=== PATIENT | female | born 1945 | race Caucasian/White ===

== ENCOUNTER 2022-05-14 05:46 | Inpatient (IN) | payer OTHER, MEDICAID, SELFPAY ==
[2022-05-07 11:38] VITALS: BMI 23.9
[2022-05-14] VITALS (16 sets, daily range): BP systolic 102–165; BP diastolic 45–82; PULSE 97–128; RESP 10–22; TEMP 35.8–37.3; O2SAT 92–100; BMI 23.9
--- NOTE | 2022-05-14 | DI.RAD.S_ITS ---
PROCEDURE: XR LUMBAR SPINE 2-3V INDICATIONS: L3-S1 PSF TECHNIQUE: 3 intraoperative fluoroscopic views of the lumbar spine were acquired. COMPARISON: None. FINDINGS: Intraoperative fluoroscopic images shows left transpedicular fusion at L4 through S1 levels and right transpedicular fusion at L3 through S1 levels. Intervertebral spacer placement at L4-5 and L5-S1 levels are seen. IMPRESSION: Fluoro guidance was provided intraoperatively for posterior fusion at L3 through S1 levels. Dictated by: Everette Xiong M.D. on 05/14/2022 at 14:15 Approved by: Everette Xiong M.D. on 05/14/2022 at 14:16
[2022-05-14 07:16] LABS: COVID19 -Nasal RAPID Negative (Negative)
[2022-05-14] MEDS: ACETAMINOPHEN 325 MG TABLET 650 MG PO ×2 (07:21→13:29)
[2022-05-14] MEDS: ALBUTEROL/IPRATROPIUM 3 ML AMPUL INH (07:21)
[2022-05-14] MEDS: LACTATED RINGERS 1,000 ML 42 ML IV ×2 (07:21→11:26)
--- NOTE | 2022-05-14 07:42 | PM.HP.1 ---
History of Present Illness History of Present Illness Date Patient Seen: 05/14/22 Time Patient Seen: 07:42 Date of Onset of Symptoms: 05/02/14 Chief complaint: INPT Narrative: Ms. Aden is a 77 yo F with chronic back pain and worsening leg pain and weakness over the last 5 years. She had previous lumbar surgery 30 years ago and has been having worsening pain over at least 10 years. She failed multiple conservative care and elected to proceed with surgery treatment. Patient History Medical History Anesthesia Anxiety and depression Asthma Chronic pain disorder Colon cancer Colon polyp Current every day smoker Diverticulosis Endometriosis Hx of sigmoidoscopy (04/10/21) IBS (irritable bowel syndrome) Lung cancer Migraine headache Osteoporosis Seasonal allergies Seizure disorder Vulvar cancer Surgical History H/O wrist surgery History of bronchoscopy (05/2020) History of hysterectomy History of lumbar spinal fusion History of lung surgery (06/04/20) History of removal of ovarian cyst Hx of colonoscopy (04/30/20) Hx of hemorrhoidectomy (1974) Family & Social History Social History: household members none Prior Living Arrangements Apartment/Condo Safety & Behavioral: Feels Safe in Current Yes Environment Been Physically Hurt or No Threatened By a Person Suicidal Ideation Description None Suicide Plan Description No Plan Tobacco & Substance use: Tobacco type cigarettes Smoking Status Current every day smoker alcohol intake former Substance Use Type does not use Meds Home Medications and Allergies Home Medications Medication Instructions Recorded Confirmed Type albuterol sulfate 90 mcg/actuation 2 puff inhalation Q4-6H PRN 05/07/22 05/14/22 History aerosol inhaler Shortness Of Breath aspirin 81 mg tablet,delayed 81 mg PO DAILY 05/07/22 05/14/22 History release duloxetine 30 mg capsule,delayed 30 mg PO BID 05/07/22 05/14/22 History release fluticasone 250 mcg-salmeterol 50 1 inh inhalation BEDTIME PRN 05/07/22 05/14/22 History mcg/dose blistr powdr for Shortness Of Breath inhalation hydrocodone 5 mg-acetaminophen 325 1 - 2 tab PO Q4-6H PRN Pain 05/07/22 05/14/22 History mg tablet lamotrigine 200 mg tablet 200 mg PO BID 05/07/22 05/14/22 History (Lamictal) lisinopril 2.5 mg tablet 2.5 mg PO DAILY 05/07/22 05/14/22 History montelukast 10 mg tablet 10 mg PO BEDTIME 05/07/22 05/14/22 History propranolol 40 mg tablet 40 mg PO TID 05/07/22 05/14/22 History cromolyn 4 % eye drops 2 drp ophthalmic (eye) QID 05/14/22 05/14/22 History topiramate 100 mg tablet (Topamax) 100 tab PO DAILY 05/14/22 05/14/22 History Allergies Allergy/AdvReac Type Severity Reaction Status Date / Time meperidine Allergy Severe Swelling Verified 05/14/22 07:16 at IV site erythromycin base AdvReac Severe Gastrointestinal Verified 05/14/22 07:16 Upset gabapentin AdvReac Severe Congested Verified 05/14/22 07:16 and hard to breathe, a lot of coughing NSAIDS (Non-Steroidal AdvReac Severe Muscle Pain Verified 05/14/22 07:16 Anti-Inflamma Review of Systems Review of Systems ROS: Yes All systems reviewed with the patient and are negative except as otherwise documented Exam Vital Signs (past 8 hours): - 05/14/22 07:02 Temperature 97.4 F L Pulse Rate 104 H Respiratory Rate 22 Blood Pressure 165/82 H Pulse Oximetry 100 Oxygen Delivery Method Room Air Oxygen Delivery Method Room Air Back/Spine/Pelvis Other: back incision well healed. no erythema. Neuro Other: Bilateral LE with decreased sensibility to bilateral L4, L5 dermatome, motor strength 4/5 in bilateral EHL, TA, gastroc. + straight leg raise to LLE. Objective Labs Labs: Laboratory Results - last 24 hr 05/14/22 06:48 SARS-CoV-2 (PCR) Negative Assessment & Plan Assessment & Plan narrative: Risks for surgery was discussed and informed consent was obtained. Risks for surgery include but not limited to bleeding, infection, nerve/dura/bladder/bowel/blood vessel injury, persisting pain, hardware complications, need for additional procedure, even . Patient understands and would like to proceed with surgery. I scheduled her for L3-4 HWR, L4-S1 TLIF, L3-S1 PSF with instrumentation. Time Spent With Patient Critical Care time: I spent a total of [] minutes of critical care time on this patient's care today; this time is exclusive of procedural time.
--- NOTE | 2022-05-14 07:47 | PM.OP.1 ---
Operative Date/Time/Diagnoses Date of procedure: 05/14/22 Time of procedure: 07:45 Pre-op diagnosis: 1. HIstory of L3-4 fusion with instrumentation 2. L3-4, L4-5, L5-S1 spinal stenosis with neurogenic claudication 3. Lumbar radiculopathy Post-op diagnosis: same Procedure & Clinicians Procedure: 1. L4-5, L5-S1 posterolateral and posterior interbody fusion 2. L4-5, L5-S1 interbody cage placement 3. L3-4 revision hemilaminectomy and exploration of fusion 4. L3-S1 posterior segmental instrumentation 5. L3-4 posterolateral fusion 6. [place] of bone marrow from iliac crest through separate incision 7. Utilization of microsurgical technique and operating microscope 8. Utilization of [employer] robotic navigation Same procedure as scheduled: Yes Indications: Ms. Aden is here for scheduled lumbar fusion due to progressive back pain, leg pain and weakness failing conservative care. She has difficulty performing activity of daily living due to lumbar spinal stenosis with previous fusion and hardware. After discussing risks and benefits of treatment options, patient elected to proceed with surgery. Surgeon: Ramon Yoo Inward Toll Operator: Daly Meyers Click Yes if Unassisted: No Anesthesia Type: General Operative Notes Closure Type: primary Specimen(s): none sent Prosthetic devices, grafts, tissues, transplants, or devices: Globus CREO MIS screws, Rise cages Applied: catheter Estimated Blood Loss (mL): 100 Blood products transfused: none Procedure in detail: Patient was seen in the preoperative area. Risks and benefits of the surgery was discussed with the patient. Informed consent was obtained from the patient and placed in the chart. Surgical site was marked. Patient was taken to the operative room. General anesthesia was administered. Prophylactic antibiotic was given to the patient less than 30 min before the incision was made. Patient was placed into a prone position on the Jairo table. Patient's back was then prepped and draped in the sterile fashion. Time-out was performed at this time. After patient was prepped and draped, patient's PSIS was palpated and marked bilaterally. Small 1 cm incision was made over the PSIS for placement of the reference probes. Two trocar was placed into the PSIS 1 on each side. The reference probe was attached to the trocar of the reference apparatus. At this time the C-arm imaging was used to confirm AP and lateral of L3, L4, L5, and S1 vertebrae and merged the C-arm imaging using the [employer] robotic navigation system with the CT of the lumbar spine. After successful merging was completed and confirmed, skin marker was used to josh out the skin incision using the Reksoft robotic arm. Bilateral incision was made at this time. Using patient's previous scar incision was made over the L3, L4, L5-S1 interval on the left side. Fascia was incised in line with skin incision. Patient's previously placed hardware over the L3-4 level was identified by dissecting down to the level the hardware using a Bovie and a Onofre. The locking caps which was removed using [place] [employer] screwdriver. The locking danika was then removed from the tulips of the pedicle screws using a Ksenia. The pedicle screws were then removed using the screwdriver. The screws were found to have poor purchase due to hardware loosening and indicating pseudoarthrosis at L3-4 level. Pre templated trajectory was used and guided using the [employer] robotic navigation system for left L3, L4, L5 and S1 pedicle screws and right L3, L4 , L5 and S1 pedicle screws placement. This was done by using the robotic arm to guide the high-speed bur to make a cortical entry point. Next a drill was placed also using the robotic arm and guided using the navigation system drilling partially through bilateral L3, L4, L5, S1 pedicles. Next L3, L4, L5, S1 pedicle screws it was pre templated and measured was placed onto the power commercial relief driver and inserted into the pedicles bilaterally. Left-sided L3 pedicle screw was not inserted since sufficient support was being provided from the other 7 pedicle screws and construct. After all 7 screws were placed C-arm imaging was taken of both AP and lateral to confirm the placement. Excellent placement of the screws were confirmed and a matched precisely with the pre planned screw placement using the navigation system. MARs retractor was inserted using [employer] guidence. Globus MARS retractors was placed inside the incision and docked onto the L4 and L5 lamina. Using microsurgical technique and operating microscope, a L4 and L5 laminectomy and L4-5, L5-S1 facetectomy was performed using a Kerrison rongeur. Patient was found have severe lateral recess and neural foramen stenosis which was fully decompressed after the laminectomy facetectomy. More than 75% of the facets were removed during the process of decompression rendering L4-5, L5-S1 level grossly unstable and required a fusion procedure at the same time. The disc space at L4-5, L5-S1 was identified, and a total diskectomy was performed at L4-5, L5-S1 level. The endplates were decorticated using a rasp and shaver. The total diskectomy and decortication was performed at L4-5, L5-S1 level in order to to accomplish a L4-5, L5-S1 fusion. The local bone from the laminectomy and facetectomy was saved for local bone grafting. After the total diskectomy and decortication was completed, Trifecta bone graft material was combined with local bone that was harvested earlier. At this time, a separate skin is incision was made over the iliac crest. A Jamshidi needle was inserted into the iliac crest through a separate skin incision. 5 cc of bone marrow aspiration was obtained through the separate skin incision using a Jamshidi needle from the iliac crest. The bone marrow aspiration was combined with local bone and the Trifecta bone grafting material. The bone grafting material was placed into the L4-5, L5-S1 interbody space along with a expandable cage. The cages were expanded to its maximum height using the torque limiting screwdriver. The disc preparation as well as the cage insertion were also performed under navigation guidance. After the cage was placed, AP and lateral C-arm imaging was taken to confirm placement of the cage and excellent position was confirmed. The fusion mass on the right side of L3-4 was exposed by performing a right-sided hemilaminectomy at L3-4 level. The hemilaminectomy was performed using the Kerrison rongeur to undercut the lamina as well removing additional epidural scar tissue for purpose of decompressing the epidural space. The fusion mass was explored and was found have visible motion indicating pseudoarthrosis. Globus MARS retractor was inserted and docked onto the L3-4, L4-5 L5-S1 posterolateral gutter. Using the power drill, posterior-lateral decortication was performed at L3-4, L4-5 L5-S1 level until bleeding cortical bone was identified. The remaining bone grafting material was placed into the L3-4, L4-5 L5-S1 posterior lateral gutter he order to accomplish posterolateral fusion at the L3-4, L4-5 L5-S1 level. At this time the tulips were attached to the L3, L4-L5 and S1 pedicle screw shanks. This was done in L3, L4-L5 S1 pedicles bilaterallyAfter measuring the length of the rods, they were inserted into the tulips of the pedicle screws and locked in place using locking caps and torque limiting screwdriver bilaterally. Total 8 caps and 2 titanium rods was used in order to complete the posterior instrumentation construct. After all the hardware was placed, and confirmed with AP and lateral C-arm imaging, the wound was then irrigated with sterile normal saline and packed with Ray-Homero gauze for 3 min to accomplish hemostasis. After the gauze was removed the deep fascia was closed with #1 Vicryl suture. The subcutaneous layer was closed with 2-0 Vicryl. The skin was closed with skin seamus. Patient tolerated the procedure well. There were no complications. Neuro monitoring system was used to monitor patient's neurologic status throughout entire procedure. There was no disturbance of the neural monitoring signals throughout the case. Complications: none Post-operative Condition: stable Disposition: PACU Plan for aftercare: Admit to inpatient hospital
[2022-05-14] MEDS: CEFAZOLIN 2 GM/20 ML SYRINGE IV (08:10)
--- NOTE | 2022-05-14 08:47 | SUR.OPER ---
Estrada inserted with ease, clear yellow urine was visualized in tubing prior to balloon inflation. Secured post operatively to leg.
--- NOTE | 2022-05-14 08:49 | SUR.OPER ---
Prone on spine table, head in foam head support, padded chest and pelvic supports, gel pad at knees, lower legs supported by pillows; nipples, genitalia and toes free of pressure, arms secured on foam padded arm boards at <90 degrees abduction. Tape over blanket at thigh secured to table. Positioning directed and approved by surgeon. Neck alignment approved by anesthesia.
[2022-05-14] MEDS: BUPIVACAINE 0.5% (PF) 20 ML, EPINEPHrine 0.1 MG INJ (09:08)
[2022-05-14] MEDS: BUPIVACAINE LIPOSOME 266 MG/20 ML VIAL INJ (12:01)
[2022-05-14] MEDS: CEFAZOLIN 1 GM VIAL IV ×2 (12:03→20:31)
[2022-05-14] MEDS: ALBUTEROL 2.5 MG/3 ML NEB (ADULT) INH ×2 (12:31→19:20)
[2022-05-14] MEDS: HYDROMORPHONE 2 MG INJ IV (13:04)
[2022-05-14] MEDS: ONDANSETRON 4 MG/2 ML INJ IV (13:11)
[2022-05-14] MEDS: OXYCODONE IR 5 MG TABLET PO ×2 (13:27→13:57)
[2022-05-14] MEDS: hydrOXYzine pamoate 25 MG CAPSULE PO ×2 (13:56→21:37)
--- NOTE | 2022-05-14 14:14 | SUR.PHASEI ---
Pt transferred to room 204 by yandy Campos in bed. Pt alert, oriented, CMS intact. SBAR report called to Kina CAMPOS. Estrada not emptied in PACU, floor to take all output. Pt transferred with belongings bag and Albuterol Inhaler.
[2022-05-14] MEDS: SODIUM CHLORIDE 0.9% 1,000 ML 100 ML IV (14:53)
[2022-05-14] MEDS: BUDESONIDE 0.5 MG/2 ML NEB INH (19:20)
[2022-05-14] MEDS: EYE EYE-BOTH (20:10)
[2022-05-14] MEDS: CROMOLYN 4% EYE-BOTH (20:10)
[2022-05-14] MEDS: DULOXETINE 30 MG CAPSULE PO (20:31)
[2022-05-14] MEDS: MONTELUKAST 10 MG TABLET PO (20:31)
[2022-05-14] MEDS: SENNOSIDES 8.6 MG TABLET 17.2 MG PO (20:31)
[2022-05-14] MEDS: DOCUSATE 100 MG CAPSULE PO (20:31)
[2022-05-14] MEDS: lamoTRIgine 100 MG TABLET 200 MG PO (20:31)
[2022-05-14] MEDS: OXYCODONE IR 5 MG TABLET 10 MG PO ×2 (20:36→23:15)
[2022-05-14] MEDS: PROPRANOLOL 40 MG TABLET PO (20:37)
[2022-05-15] MEDS: CEFAZOLIN 1 GM VIAL IV (03:18)
[2022-05-15] MEDS: MAG HYDROX/ALUM/SIMETH 30 ML UDC PO (04:50)
[2022-05-15 05:54] VITALS: BP 115/50; PULSE 73; RESP 16; TEMP 36.3; O2SAT 94
[2022-05-15 07:18] LABS: Hematocrit 29.4 % (36-46); Hemoglobin 9.8 g/dL (12.0-16.0)
--- NOTE | 2022-05-15 07:21 | P.DS_ITS ---
History of Present Illness History of Present Illness Date Patient Seen: 05/15/22 Time Patient Seen: 07:21 Chief complaint: Back pain Narrative: Patient states her pain is mild this morning. Denies fever or chills. No nausea or vomiting. Patient has assistance at home. Discharge Providers Provider Date of admission: 05/14/22 05:46 Discharge Date: 05/15/22 Consults: 05/14/22 14:11 Consult to Occupational Therapy Evaluate & Treat Comment: Physician Instructions: Evaluate and treat Consult to Physical Therapy Evaluate & Treat Comment: Physician Instructions: Evaluate and Treat Discharge provider: Bruce Aiken PA-C Summary Hospital Course Discharge Diagnosis: 1. HIstory of L3-4 fusion with instrumentation 2. L3-4, L4-5, L5-S1 spinal stenosis with neurogenic claudication 3. Lumbar radiculopathy Hospital Course: 1. L4-5, L5-S1 posterolateral and posterior interbody fusion 2. L4-5, L5-S1 interbody cage placement 3. L3-4 revision hemilaminectomy and exploration of fusion 4. L3-S1 posterior segmental instrumentation 5. L3-4 posterolateral fusion 6. [place] of bone marrow from iliac crest through separate incision 7. Utilization of microsurgical technique and operating microscope 8. Utilization of [employer] robotic navigation Same procedure as scheduled: Yes Indications: Ms. Aden is here for scheduled lumbar fusion due to progressive back pain, leg pain and weakness failing conservative care. She has difficulty performing activity of daily living due to lumbar spinal stenosis with previous fusion and hardware. After discussing risks and benefits of treatment options, patient elected to proceed with surgery. Surgeon: Ramon Yoo Director Content Marketing: Daly Meyers Click Yes if Unassisted: No Anesthesia Type: General Operative Notes Closure Type: primary Specimen(s): none sent Prosthetic devices, grafts, tissues, transplants, or devices: Globus CREO MIS screws, Rise cages Applied: catheter Estimated Blood Loss (mL): 100 Blood products transfused: none Patient admitted to the hospital for the above-mentioned procedure. Patient consented to the same. Patient taken operating room underwent lumbar fusion on May 14, 2022. Patient back in her room recovering well as in stable condition. Patient has Estrada catheter and has not gotten out bed since surgery. With this continue the Estrada catheter this morning. She will mobilize with physical therapy. She will discharge home today if safe for home environment. Status at Discharge Cognitive/behavioral status at discharge: oriented Functional status at discharge: uses cane/walker Overall status at discharge: patient is progressing back to baseline Exam Vital Signs (past 8 hours): - 05/15/22 05:54 Temperature 97.4 F L Pulse Rate 73 Respiratory Rate 16 Blood Pressure 115/50 L Pulse Oximetry 94 Oxygen Flow Rate 0 Oxygen Delivery Method Room Air Oxygen Flow Rate 0 Narrative Exam Narrative: 77-year-old female resting comfortably in bed in no apparent distress. Motor functions intact bilateral lower extremities. Sensation grossly intact to light touch bilateral lower extremities. Const General: cooperative, healthy appearing and comfortable Orientation: alert Objective Labs Result Diagrams: 05/15/22 06:53 Labs: Laboratory Results - last 24 hr 05/15/22 06:53 Hgb 9.8 L Hct 29.4 L PFSH Medical History Anesthesia Anxiety and depression Asthma Chronic pain disorder Colon cancer Colon polyp Current every day smoker Diverticulosis Endometriosis Hx of sigmoidoscopy (04/10/21) IBS (irritable bowel syndrome) Lung cancer Migraine headache Osteoporosis Seasonal allergies Seizure disorder Vulvar cancer Surgical History H/O wrist surgery History of bronchoscopy (05/2020) History of hysterectomy History of lumbar spinal fusion History of lung surgery (06/04/20) History of removal of ovarian cyst Hx of colonoscopy (04/30/20) Hx of hemorrhoidectomy (1974) Social History household members: none Smoking Status: Current every day smoker alcohol intake: former Discharge Assessment & Plan Assessment and Plan Assessment: Patient progressing as expected status post Lumbar fusion Plan of Treatment: Discontinue Estrada this morning Mobilize with physical therapy, limit bending, twisting, lifting Multimodal pain management Discharge home today after physical therapy if safe for home environment Discharge Plan Discharge Plan Patient Disposition: Home Discharge orders & Medications Prescriptions: New acetaminophen 325 mg Tablet 650 mg PO Q6HR PRN (Reason: Pain, Mild (1-3)) Qty: 60 0RF docusate sodium 100 mg Capsule 100 mg PO BID Qty: 20 0RF oxycodone 5 mg Tablet 10 mg PO Q3HR PRN (Reason: Pain, Severe (7-10)) Qty: 60 0RF hydroxyzine pamoate 25 mg Capsule 25 mg PO Q4HR PRN (Reason: Nausea And Vomiting) Qty: 10 0RF Continued fluticasone propion-salmeterol 250-50 mcg/dose Blister With Device 1 inh INHALATION BEDTIME PRN (Reason: Shortness Of Breath) Label Comments: pt states she quit taking. lamotrigine [Lamictal] 200 mg Tablet 200 mg PO BID aspirin 81 mg Tablet,Delayed Release (Dr/Ec) 81 mg PO DAILY propranolol 40 mg Tablet 40 mg PO TID montelukast 10 mg Tablet 10 mg PO BEDTIME albuterol sulfate 90 mcg/actuation Hfa Aerosol Inhaler 2 puff INHALATION Q4-6H PRN (Reason: Shortness Of Breath) lisinopril 2.5 mg Tablet 2.5 mg PO DAILY duloxetine 30 mg Capsule,Delayed Release(Dr/Ec) 30 mg PO BID cromolyn 4 % Drops 2 drp OPHTHALMIC (EYE) QID topiramate [Topamax] 100 mg tablet 100 tab PO DAILY Label Comments: TAKE 1 TABLET BY MOUTH TWICE DAILY Discontinued hydrocodone-acetaminophen 5-325 mg Tablet 1 - 2 tab PO Q4-6H PRN (Reason: Pain) Follow up/Referrals: Ramon Yoo MD [Physician] - (2 weeks) Diet/Activity/Treatments Diet: Diet as Tolerated Activity: Limit bending, twisting, lifting Cold/Heat Therapy: Ice to back as needed Skin/Wound/Dressing Care Report to your healthcare provider any signs of infection, such as:: chills, fever, night sweats, increased pain, unusual drainage and unusual redness Dressing: Keep dressing clean and dry Visit Report/Discharge Packet Instructions: DI for Heart Failure, DI for Prescription Opioid Use, DI for Transforaminal Lumbar Interbody Fusion Stand Alone Forms: Surgery Discharge Quality VTE Deep Vein Thrombosis/Pulmonary Embolism Present on Admission: No
[2022-05-15] MEDS: ALBUTEROL 2.5 MG/3 ML NEB (ADULT) INH ×2 (07:32→12:04)
[2022-05-15] MEDS: BUDESONIDE 0.5 MG/2 ML NEB INH (07:32)
[2022-05-15 07:35] VITALS: O2SAT 92
[2022-05-15 07:40] VITALS: BP 132/62; PULSE 76; RESP 15; TEMP 36.8; O2SAT 100
[2022-05-15] MEDS: ONDANSETRON 4 MG/2 ML INJ IV (08:33)
--- NOTE | 2022-05-15 09:15 | PT.IIE ---
Current Diagnoses Spondylolisthesis, lumbar region (05/14/22) Other spondylosis with radiculopathy, lumbosacral region (05/14/22) Spinal stenosis, lumbar region without neurogenic claudication (05/14/22) Arthrodesis status (05/14/22) Surgery Performed Operation Date: 05/14/22 07:45 Actual Procedures p L4-5, L5-S1 TLIF, L3-4 HWR & L3-S1 PSF -Robot - Ramon Yoo MD Surgical History (Last Reviewed 05/15/22 @ 07:24 by Bruce Aiken PA-C) H/O wrist surgery History of bronchoscopy (05/2020) History of hysterectomy History of lumbar spinal fusion History of lung surgery (06/04/20) History of removal of ovarian cyst Hx of colonoscopy (04/30/20) Hx of hemorrhoidectomy (1974) Medical History (Last Reviewed 05/15/22 @ 07:24 by Bruce Aiken PA-C) Anesthesia Anxiety and depression Asthma Chronic pain disorder Colon cancer Colon polyp Current every day smoker Diverticulosis Endometriosis Hx of sigmoidoscopy (04/10/21) IBS (irritable bowel syndrome) Lung cancer Migraine headache Osteoporosis Seasonal allergies Seizure disorder Vulvar cancer Physical Therapy Inpatient Evaluation/Re-Eval M1 PT/OT-IP Prior Functional Status Start: 05/15/22 12:15 Freq: NEEDED Status: Active Protocol: Document 05/15/22 09:15 AB (Rec: 05/15/22 12:25 AB [id number]) Medical Review Prior Functional Status Medical History Reviewed Yes Communication able to make needs known Mobility and Gait pt stated that she is independent with all mobilities and ambulation without AD indoors but uses a SPC or quad cane for outdoor mobility Activities of Daily Living and IADL's per OT notes: Increased pain and increased time for ADl and IADL needs. Social History Household Members none Living Arrangements House Number of Floors (Floors) One Floor Number of Stairs To Enter/Railing? Pt states to stay with her duaghter whose house has no steps to enter. Home Environment Standard Height Toilet,Walk in Shower Home Equipment Quad Cane,Straight Cane Additional Social History Comment pt plans to go to her daughter 's house upon d/c and daughter will assist pt pt stated that her daughter will get a FWW for her to use M2 PT-IP Current Condition Start: 05/15/22 12:15 Freq: NEEDED Status: Active Protocol: Document 05/15/22 09:15 AB (Rec: 05/15/22 12:25 AB [email or web address]) Physical Therapy Current Condition Current Condition Evaluation Date 05/15/22 Treatment Diagnosis s/p L4-5, L5S1 fusion; L3-4 hemilami rev; L3-S1 instrum; diffi in walking Onset Date 05/14/22 M3 PT-IP Subjective Start: 05/15/22 12:15 Freq: NEEDED Status: Active Protocol: Document 05/15/22 09:15 AB (Rec: 05/15/22 12:25 AB [email or web address]) Subjective Physical Therapy Visit Type Type Initial Evaluation Visit Start Time 09:15 Visit Stop Time 09:46 Total Visit Minutes 31 Number of GEOGRAPHIC INFORMATION SYSTEM ANALYST Visits 0 Physical Therapy Visit Comments Patient Comments agreeable to do PT; requested to use the toilet Therapy Pain Assessment Pain When Pain Assessed During Mobility Pain Present Pain Present Pain Reported Location Lower Back Intensity 2 Scale Used Numeric (0 - 10) Pain Management Techniques Distraction,Modification of Treatment,Re-positioning, Timing of Activity with Medications M4 PT-IP Mobility and Gait Start: 05/15/22 12:15 Freq: NEEDED Status: Active Protocol: Document 05/15/22 09:15 AB (Rec: 05/15/22 12:25 AB [email or web address]) PT-Bed Mobility Assessment Rolling Type of Rolling Log Rolling Level of Assist Standby Assistance Supine to Sit Supine to Sit Standby Assistance PT-Transfer Assessment Sit to and From Stand Sit to and from Stand Standby Assistance,Contact Guard Assistance,1 Person Assistance,Use of Upper Extremities Equipment Transfer Assistive Device Gait Belt,Front Wheeled Walker Orthotic/Prosthetic Devices or Brace: No Transfers Transfer Destination Toilet Transfer Technique ambulated Transfer Ability Level of Assist Standby Assistance,Contact Guard Assistance,1 Person Assistance,Use of Upper Extremities Comments Mobility Comments educated pt on back precautions and log roll bed mobility. pt completed log roll bed mobility supine to sit SBA and cues. requested to use the toilet. sit to stand SBA to CGA and ambulated to the toilet using FWW SBA to CGA. able to complete hygiene care SBA. completed sit to stand SBA to CGA and ambulated towards the sink using FWW SBA. able to maintain standing SBA while completing handwashing. agreed to ambulate more in room using FWW and completed ~ 50 ft. pt agreed to sit on the chair. positioned on the chair. call ight and table placed within reach. Gait Assessment Gait Gait Assistance Required: Standby Assistance,Contact Guard Assist Distance (Feet) 50 Able to Maintain Weight Bearing Status Yes During Gait Assistive Devices Assistive Device Gait Belt,Front Wheeled Walker Orthotic/Prosthetic Devices or Brace: No Gait Deviations General Gait Pattern Decreased Stride Length, Decreased Feet Clearance Factors Limiting Gait Function Factors Limiting Gait Function Decreased Activity Tolerance, Decreased Strength,Limited Range of Motion,Pain,Poor Balance,Poor Safety Awareness, Respiratory Distress PT-Balance Assessment Sitting Balance and Reactions Static Sitting Balance Ability Normal Dynamic Sitting Balance Ability Good Standing Balance and Reactions Static Standing Balance Ability Fair Dynamic Standing Balance Ability Fair Device Used FWW M5 PT-IP Objective Assessments Start: 05/15/22 12:15 Freq: NEEDED Status: Active Protocol: Document 05/15/22 09:15 AB (Rec: 05/15/22 12:25 AB [email or web address]) Orientation Orientation/Cognition Level of Alertness Alert Orientation Name,Place,Situation Language Function Ability Hard of Hearing Safety Awareness Decreased Safety Awareness Memory Description Short Term Impaired Gross Range of Motion Lower Extremity ROM Assessment Within Functional Limits Strength Lower Extremity Strength Hip 4-/5 Knee 4-/5 Coordination Assessment Gross Coordination Gross Coordination WNL Muscle Tone Muscle Tone WNL Yes M6 PT-IP Treatment Start: 05/15/22 12:15 Freq: NEEDED Status: Active Protocol: Document 05/15/22 09:15 AB (Rec: 05/15/22 12:25 AB [email or web address]) Physical Therapy Treatment Education Education Provided Precautions,Weight Bearing Status,Post-Op Packet,Safety M7 PT-IP Assessment and Plan Start: 05/15/22 12:15 Freq: NEEDED Status: Active Protocol: Document 05/15/22 09:15 AB (Rec: 05/15/22 12:25 AB [email or web address]) PT Summary Assessment and Plan Potential Rehabilitation Potential Good Status of Condition at Evaluation Stable Summary Impairments Pain,ROM,Strength,Balance, Coordination,Sensation,Tone, Cognition,Bed Mobility, Transfers,Gait,Activity Tolerance Assessment Summary pt requiring SBA to CGA with mobility and plans to go home with her daughter to assist her. pt may go home when medically stable. Goals Bed Mobility Goal Independent Transfer Goal Independent,Front Wheeled Walker Gait Goal Independent,Front Wheel Walker Gait Distance 200 Other Goals improve ambulation using SPC SBA 250 ft Days to Meet Goals 5 Frequency of Treatment Frequency Of Treatment Twice a Day Treatment Plan Physical Therapy Treatment Plan Bed Mobility Training,Transfer Training,Gait Training, Therapeutic Exercise,Balance Retraining,Post Op Education, Discharge Planning,Hot or Cold Pack,Neuromuscular Re-ed, Coordination Retraining,Manual Therapy Precautions Lumbar Precautions Log Roll,No Twisting,Limit Bending,Lifting Restriction of 10 lbs,Gait Belt above Incisional Area Recommendations To Nursing Amount of Assist Needed 1 Person Assist Discharge Recommendations PT Discharge Recommendations Home with Assistance Transportation Needs at Discharge Private Vehicle
[2022-05-15 10:07] VITALS: BP 141/70; PULSE 84
[2022-05-15] MEDS: lisinopriL 5 MG TABLET 2.5 MG PO (10:07)
[2022-05-15] MEDS: CROMOLYN 4% EYE-BOTH (10:07)
[2022-05-15] MEDS: EYE EYE-BOTH (10:07)
[2022-05-15] MEDS: TOPIRAMATE 100 MG TABLET PO (10:07)
[2022-05-15] MEDS: DOCUSATE 100 MG CAPSULE PO (10:07)
[2022-05-15] MEDS: DULOXETINE 30 MG CAPSULE PO (10:08)
[2022-05-15] MEDS: PROPRANOLOL 40 MG TABLET PO (10:09)
[2022-05-15] MEDS: lamoTRIgine 100 MG TABLET 200 MG PO (10:09)
[2022-05-15] MEDS: OXYCODONE IR 5 MG TABLET 10 MG PO ×2 (10:14→13:10)
--- NOTE | 2022-05-15 10:55 | OT.IP.EVAL ---
Current Diagnoses Spondylolisthesis, lumbar region (05/14/22) Other spondylosis with radiculopathy, lumbosacral region (05/14/22) Spinal stenosis, lumbar region without neurogenic claudication (05/14/22) Arthrodesis status (05/14/22) Surgery Performed Operation Date: 05/14/22 07:45 Actual Procedures p L4-5, L5-S1 TLIF, L3-4 HWR & L3-S1 PSF -Robot - Ramon Yoo MD Past Medical History (Last Reviewed 05/15/22 @ 07:24 by Bruce Aiken PA-C) Anesthesia Anxiety and depression Asthma Chronic pain disorder Colon cancer Colon polyp Current every day smoker Diverticulosis Endometriosis Hx of sigmoidoscopy (04/10/21) IBS (irritable bowel syndrome) Lung cancer Migraine headache Osteoporosis Seasonal allergies Seizure disorder Vulvar cancer Surgical History (Last Reviewed 05/15/22 @ 07:24 by Bruce Aiken PA-C) H/O wrist surgery History of bronchoscopy (05/2020) History of hysterectomy History of lumbar spinal fusion History of lung surgery (06/04/20) History of removal of ovarian cyst Hx of colonoscopy (04/30/20) Hx of hemorrhoidectomy (1974) Occupational Therapy Inpatient Evaluation/Re-Eval M1 PT/OT-IP Prior Functional Status Start: 05/15/22 11:25 Freq: NEEDED Status: Active Protocol: Document 05/15/22 10:15 [facility] (Rec: 05/15/22 11:44 [facility] [id number]) Medical Review Prior Functional Status Communication independent Mobility and Gait Pt states did not use a device prior but would have pain which limited her walking. Activities of Daily Living and IADL's Increased pain and increased time for ADl and IADL needs. Social History Household Members children,none Living Arrangements House Number of Floors (Floors) One Floor Number of Stairs To Enter/Railing? Pt states to stay with her daughter whose house has no steps to enter. Home Environment Standard Height Toilet,Walk in Shower. Pt not very certain on the set-up at her daughter's home. M2 OT-IP Current Condition Start: 05/15/22 11:25 Freq: Status: Active Protocol: Document 05/15/22 10:15 [facility] (Rec: 05/15/22 11:44 [facility] [id number]) Occupational Therapy Current Condition Current Condition Evaluation Date 05/15/22 Treatment Diagnosis s/p L4-5, L5-S1 TLIF Diagnosis Onset Date 05/14/22 Post Operative Precautions Lumbar Precautions Log Roll,No Twisting,Limit Bending,Lifting Restriction of 10 lbs,Gait Belt above Incisional Area M3 OT- IP Subjective and Pain Start: 05/15/22 11:25 Freq: Status: Active Protocol: Document 05/15/22 10:15 [facility] (Rec: 05/15/22 11:44 [facility] [id number]) OT- Subjective Occupational Therapy Visit Type Type Initial Evaluation Visit Start Time 10:15 Visit Stop Time 10:55 Total Visit Minutes 40 Occupational Therapy Visit Comments Patient Comments Pt agreed to get up and work with OT. Patient/Caregiver Goals TO go home. OT Pain Assessment Pain When Pain Assessed At Rest Pain Present Pain Present Pain Reported Location Lower Back Intensity 7 Scale Used Numeric (0 - 10) M4 OT- IP ADL's Start: 05/15/22 11:25 Freq: Status: Active Protocol: Document 05/15/22 10:15 [facility] (Rec: 05/15/22 11:44 [facility] [id number]) OT [id number] Comments OT Self-Feeding Comments NOt at meal time. OT ADL-Grooming General Evaluation Grooming Ability Independent Areas Needing Assistance Retrieving/Set-up of Grooming Items OT ADL-Oral Care General Eval Oral Care Ability Standby Assistance Areas of Assistance Retrieving/Set-Up of Items Comments Oral Care Comments Pt needing initial education to spit into a cup or hinge at her hips in order to best follow her back precautions. OT ADL-Dressing General Eval Lower Body Dressing Ability Standby Assistance Comments OT Dressing Comments Able to show pt LB dressing equipment. Pt able to alyson/ doff her sock but with discomfort. Pt states will have her daughter assist her with her needs. OT ADL-Toileting Comments OT Toileting Comments Pt not having to go at this time as toure just removed. Pt able to adequately reach to wipe during simulation or suggested for pt to stand up and wipe. Suggested wet ones will also be beneficial for pt to have and use of pads at night. OT ADL-Bathing Comments OT Bathing Comments Pt not wanting to shower. M5 OT- IP IADL's Start: 05/15/22 11:25 Freq: Status: Active Protocol: Document 05/15/22 10:15 [facility] (Rec: 05/15/22 11:44 [facility] [id number]) OT-Instrumental Activities of Daily Living Home Safety Awareness Awareness of Need for Assistance at Home Good Awareness Ability to Problem Solve Emergency Able to Problem Solve Situations Home Safety Comments Pt to live with her daughter initially to get assist for all needs. M6 OT- IP Functional Cognition Start: 05/15/22 11:25 Freq: Status: Active Protocol: Document 05/15/22 10:15 [facility] (Rec: 05/15/22 11:44 [facility] [id number]) Cognitive Factors Limiting Selfcare Function Cognitive Ability Level of Alertness Alert Patient Orientation Name,Place,Situation Attention Span Ability Capable of Focused Attention, Capable of Sustained Attention Ability to Follow Commands Able to Follow One Step Commands Memory Description No Deficits Noted Safety Awareness Decreased Ability to Apply Precautions Cognitive Comments Cognitive Assessment Comments Pt is slightly impulsive otherwise able to follow commands well for ADL and mobility needs. OT- Vision and Hearing OT- Vision Assessment Vision History Cataracts Visual Acuity Glasses For Reading M7 OT- IP Mobility and Balance Start: 05/15/22 11:25 Freq: Status: Active Protocol: Document 05/15/22 10:15 [facility] (Rec: 05/15/22 11:44 [facility] [id number]) OT- Bed Mobility Assessment Sit to Supine Sit to Supine Assist Contact Guard Assistance OT-Transfer Assessment Sit to and From Stand Sit to and from Stand Standby Assistance,Contact Guard Assistance Transfers Transfer Ability Standby Assistance Technique Transfer Destination Bed,Chair Transfer Technique Stand Step Pivot Devices Transfer Assistive Devices Gait Belt,Front Wheeled Walker Comments Mobility Comments Pt tends to pull on the FWW to stand and vc to push up from the surface sitting on prior to standing. Once on her feet SBA with FWW with occasional CGA. Able to try a few steps without the FWW and pt needing CGA/OMAR and agreed best to get a FWW. Pt agreed to get a FWW and able to get orders to issue youth FWW to the pt. OT- Balance Assessment Sitting Balance and Reactions Static Sitting Balance Ability Good Dynamic Sitting Balance Ability Good Standing Balance and Reactions Static Standing Balance Ability Good Dynamic Standing Balance Ability Fair M8 OT- IP Objective Assessments Start: 05/15/22 11:25 Freq: Status: Active Protocol: Document 05/15/22 10:15 [facility] (Rec: 05/15/22 11:44 [facility] [id number]) OT-Muscle Tone Assessment Muscle Tone WNL Yes M9 OT- IP Assessment and Plan Start: 05/15/22 11:25 Freq: Status: Active Protocol: Document 05/15/22 10:15 [facility] (Rec: 05/15/22 11:44 [facility] [id number]) OT Summary Assessment and Plan Potential Rehabilitation Potential Excellent Analytic Complexity at Evaluation Low Summary OT Impairments Pain,Balance,Functional Mobility,Dressing,Toileting, Bathing,Toilet Transfers, Shower Transfers Progress Towards Goals Progressing Toward Goals Assessment Summary Pt low complexity and main barrier are pain and now needing assist for ADl needs. Pt to go to her daugther's home in which her daughter is able to be there at all times to provide assist. Goals Grooming Goal Independent Dressing Goal Independent Toileting Goal Independent Bathing Goal Independent Toilet Transfer Goal Independent Shower Transfer Goal Independent Patient/Caregiver Education Goal Demonstrate Post-Op Precautions Days to Meet Goals 2 Frequency of Treatment Frequency Of Treatment Once a Day Treatment Plan OT Treatment Plan ADL Training,Functional Mobility,Patient/Family Education,Discharge Planning Other Treatment Recommendations and Next Shower if still here Treatment Focus Discharge Recommendations OT Discharge Recommendations Home with Assistance Transportation Needs at Discharge Private Vehicle
[2022-05-15 12:04] VITALS: PULSE 69; RESP 14; O2SAT 94
--- NOTE | 2022-05-15 13:32 | PC.NURSE ---
Discharge note: Patient discharged home per MD order, voided post catheter removal without any difficulties. Minimal nausea in am, Zofran x1, no N/V for lunch, tolerated meal. Pain well controlled with Oxycodone PO. Cleared by PT and OT for discharge. Discharge instructions given to patient, discussed importance of F/U on May 30 appt. Discussed importance of mobility precautions, new medications, and home safety. Patient and daughter verbalized understanding of discharge instructions. Home via private vehicle accompanied by daughter.
== END 2022-05-15 13:45 | disposition home or self-care (01) | DRG 454 ==
PROVIDERS: Admitting Provider Orthopaedic Surgery Orthopaedic Surgery of the Spine; Referring Provider Orthopaedic Surgery Orthopaedic Surgery of the Spine; Visit Provider Orthopaedic Surgery Orthopaedic Surgery of the Spine
PROC: 0SG00AJ Fusion of Lumbar Vertebral Joint with Interbody Fusion Device, Posterior Approach, Anterior Column, Open Approach (ICD-10-PCS; principal; 2022-05-14 07:45)
DX: M48.062 Spinal stenosis, lumbar region with neurogenic claudication (principal); M96.0 Pseudarthrosis after fusion or arthrodesis; T84.038A Mechanical loosening of other internal prosthetic joint, initial encounter; M48.07 Spinal stenosis, lumbosacral region; M54.16 Radiculopathy, lumbar region; M96.1 Postlaminectomy syndrome, not elsewhere classified; G40.909 Epilepsy, unspecified, not intractable, without status epilepticus; I10 Essential (primary) hypertension; J45.909 Unspecified asthma, uncomplicated; F32.A Depression, unspecified; F41.9 Anxiety disorder, unspecified; G43.909 Migraine, unspecified, not intractable, without status migrainosus; F17.210 Nicotine dependence, cigarettes, uncomplicated; Z20.822 Contact with and (suspected) exposure to COVID-19; Z98.1 Arthrodesis status
CPT/HCPCS: 36415; 72100; 76000; 85014; 85018; 87635; 94640; 97161; 97165; 97530; 97535; 99406; C9803; C1713; C9290; J0171; J0330; J0690; J1100; J1170; J2405; J2704; J3010; J7613